=== PATIENT | female | born 1950 | race Caucasian/White ===

== ENCOUNTER → 2017-11-02 | Outpatient (CLI) | payer MEDICARE, OTHER | END | disposition home or self-care (01) | LOC: PCVCCLINIC 10:32 | DX: I10 Essential (primary) hypertension (principal); R01.1 Cardiac murmur, unspecified; E78.5 Hyperlipidemia, unspecified; R93.1 Abnormal findings on diagnostic imaging of heart and coronary circulation; E11.8 Type 2 diabetes mellitus with unspecified complications; K21.9 Gastro-esophageal reflux disease without esophagitis; R09.89 Other specified symptoms and signs involving the circulatory and respiratory systems; Z79.4 Long term (current) use of insulin; Z87.891 Personal history of nicotine dependence; Z79.82 Long term (current) use of aspirin; Z79.899 Other long term (current) drug therapy | CPT/HCPCS: 80061; 93005; G0463 ==

== ENCOUNTER → 2018-08-13 | Outpatient (CLI) | payer MEDICARE, OTHER | END | disposition home or self-care (01) | LOC: PCVCCLINIC 14:29 | PROVIDERS: ATTEND Internal Medicine Cardiovascular Disease | DX: I10 Essential (primary) hypertension (principal); E11.8 Type 2 diabetes mellitus with unspecified complications; R01.1 Cardiac murmur, unspecified; E78.00 Pure hypercholesterolemia, unspecified; Z82.49 Family history of ischemic heart disease and other diseases of the circulatory system; Z79.4 Long term (current) use of insulin; Z87.891 Personal history of nicotine dependence; Z79.82 Long term (current) use of aspirin; Z79.899 Other long term (current) drug therapy | CPT/HCPCS: 80061; 93005; G0463 ==

== ENCOUNTER → 2018-09-19 | Outpatient (CLI) | payer MEDICARE, OTHER ==
--- NOTE | 2018-09-19 12:42 | PCVCIMAG ---
APPROVED REPORT Study performed: 09/19/2018 11:43:45 EXAM: Limited 2D, Doppler, and color-flow Echocardiogram Patient Location: Echo lab Room #: 2Status: routine BSA: 1.63 HR: 74 bpmBP: 148/80 mmHg Rhythm: NSR Other Information Study Quality: Good Risk Factors: Cardiac Risk Factors: HTN, DM, FHX of CAD Indications Diabetes Murmur Hypertension/HDD 2D Dimensions IVSd: 7.16 (7-11mm)LVOT Diam: 20.10 (18-24mm) LVDd: 43.58 mm PWd: 8.99 (7-11mm)Ascending Ao: 30.26 (22-36mm) LVDs: 26.08 (25-40mm) Biplane EF: 60.0 % Volumes Left Atrial Volume (Systole) Single Plane 4CH: 35.67 mLSingle Plane 2CH: 29.32 mL Biplane LA Volume: 33.00 mLLA ESV Index: 20.00 mL/m2 Aortic Valve AoV Peak Augustin.: 2.45 m/s AO Peak Gr.: 24.19 mmHgLVOT Max P.77 mmHg AO Mean Gr.: 13.29 mmHgLVOT Mean P.40 mmHg AO V2 Mean: 1.75 m/sLVOT Max V: 1.07 m/s AO V2 VTI: 50.81 cmLVOT Mean V: 0.73 m/s ROXIE (VTI): 1.42 [id number] V1 VTI: 22.68 cm ROXIE Vmax: 1.39 cm2 AI Vmax: 4.46 m/sSV (LVOT): 71.96 mL AI Waller: 3.29 m/s2 AI PHT: 394.43 ms Tricuspid Valve TR Peak Augustin.: 2.55 m/s TR Peak Gr.: 25.96 mmHg Left Ventricle The left ventricle is normal size. There is normal left ventricular wall thickness. The left ventricular systolic function is normal. The left ventricular ejection fraction is within the normal range. LVEF is 60%. This study is not technically sufficient to allow evaluation of the LV diastolic function. Atria The left atrium size is normal. The right atrium size is normal. Aortic Valve Aortic valve is trileaflet. Moderate aortic valve sclerosis. Mild to moderate aortic regurgitation. Mild to moderate aortic stenosis. Highest mean aortic valve gradient is 13_mmHg. Peak aortic valve gradient is 24_mmHg. Calculated ROXIE by the continuity equation is 1.5_cm2. Mitral Valve The mitral valve is normal in structure. Trace mitral regurgitation. No evidence of mitral valve stenosis. Tricuspid Valve The tricuspid valve is normal in structure. Trace tricuspid regurgitation. Pulmonic Valve The pulmonary valve is normal in structure. There is no pulmonic valvular regurgitation. Pericardium There is no pericardial effusion. There is no pleural effusion. <Conclusion> The left ventricle is normal size. LVEF is 60%. This study is not technically sufficient to allow evaluation of the LV diastolic function. The left atrium size is normal. Aortic valve is trileaflet. Moderate aortic valve sclerosis. Mild to moderate aortic regurgitation. Mild to moderate aortic stenosis. Highest mean aortic valve gradient is 13_mmHg. Peak aortic valve gradient is 24_mmHg. Calculated ROXIE by the continuity equation is 1.5_cm2. Trace mitral regurgitation. Trace tricuspid regurgitation. There is no pericardial effusion.
--- NOTE | 2018-09-19 13:47 | PCVCIMAG ---
EXAM: BILATERAL RENAL ULTRASOUND AND BILATERAL RENAL DUPLEX INDICATION: Hypertension FINDINGS: Right kidney: Length measures 9.0 cm. No hydronephrosis or extensive renal scarring. Right renal duplex: Adequate technical quality. No sonographic evidence of renal artery stenosis. The aortic to renal artery ratio is 2.2. The renal vein is patent. Left kidney: Length measures 9.1 cm. No hydronephrosis or extensive renal scarring. Left renal duplex: Adequate technical quality. No sonographic evidence of renal artery stenosis. The aortic to renal artery ratio is 0.8. The renal vein is patent. Bladder: No obvious abnormalities. IMPRESSION: No significant renal artery stenosis. No hydronephrosis bilaterally. LOC:[place] [id number]
== END | disposition home or self-care (01) ==
LOC: PCVCIMAG 10:35
PROVIDERS: ATTEND Internal Medicine Cardiovascular Disease
DX: I10 Essential (primary) hypertension (principal); R01.1 Cardiac murmur, unspecified; E11.9 Type 2 diabetes mellitus without complications; I35.2 Nonrheumatic aortic (valve) stenosis with insufficiency; R93.1 Abnormal findings on diagnostic imaging of heart and coronary circulation; I65.23 Occlusion and stenosis of bilateral carotid arteries; E78.5 Hyperlipidemia, unspecified; Z79.4 Long term (current) use of insulin; Z87.891 Personal history of nicotine dependence; Z79.82 Long term (current) use of aspirin
CPT/HCPCS: 76770; 93005; 93308; 93975; G0463

== ENCOUNTER → 2019-01-30 | Outpatient (CLI) | payer MEDICARE, OTHER | END | disposition home or self-care (01) | LOC: PCVCCLINIC 13:40 | PROVIDERS: ATTEND Internal Medicine Cardiovascular Disease | DX: I10 Essential (primary) hypertension (principal); E78.5 Hyperlipidemia, unspecified; I35.0 Nonrheumatic aortic (valve) stenosis; I65.23 Occlusion and stenosis of bilateral carotid arteries; R93.1 Abnormal findings on diagnostic imaging of heart and coronary circulation; R01.1 Cardiac murmur, unspecified; E11.8 Type 2 diabetes mellitus with unspecified complications; E78.00 Pure hypercholesterolemia, unspecified; Z79.4 Long term (current) use of insulin; Z88.0 Allergy status to penicillin; Z88.8 Allergy status to other drugs, medicaments and biological substances; Z87.891 Personal history of nicotine dependence; Z79.899 Other long term (current) drug therapy | CPT/HCPCS: 36415; 80061; 93005; G0463 ==